=== PATIENT | male | born 2000 | race American Indian/Alaskan Native ===

== ENCOUNTER 2021-12-19 21:04 | Emergency (ER) | payer SELFPAY | END 2021-12-20 03:05 | disposition left against medical advice (07) | LOC: ED 21:04 | DX: M79.606 Pain in leg, unspecified (principal); Z53.21 Procedure and treatment not carried out due to patient leaving prior to being seen by health care provider ==

== ENCOUNTER 2022-01-04 09:15 | Emergency (ER) | payer SELFPAY ==
[2022-01-04 09:53] VITALS: BP 147/98
--- NOTE | 2022-01-04 10:25 | Emergency Department Report ---
Chief Complaint: Extremity Injury, Lower Stated Complaint: CHECK ANKLE Time Seen by Provider: 01/04/22 10:24 - HPI History of Present Illness: 21 yo hurt ankle last Saturday at work Ankle if fine now Here for work note - ROS Review of Systems: no complaints - Exam Vital Signs: Vital Signs 01/04/22 09:52 Temperature 98.2 F Pulse Rate 62 Respiratory 20 Rate Blood Pressure 147/98 O2 Sat by Pulse 99 Oximetry Physical Exam: ambulatory neurovasc intact MSE screening note: Focused history and physical exam performed. Due to findings the following was ordered: mse to pcp ED Disposition for MSE Clinical Impression: Ankle pain Disposition: 01 HOME / SELF CARE / HOMELESS Is pt being admited?: No Does the pt Need Aspirin: No Condition: Stable Referrals: ARMANDO ROD MD [Staff Physician] - 3-5 Days Forms: Work/School Release Form(ED) Time of Disposition: 10:25
== END 2022-01-04 10:25 | disposition home or self-care (01) ==
LOC: ED 09:15
DX: M25.579 Pain in unspecified ankle and joints of unspecified foot (principal)
CPT/HCPCS: 99282